=== PATIENT | male | born 1975 | race Caucasian/White ===

== ENCOUNTER 2016-06-26 18:51 | Emergency (ER) | payer OTHER ==
[2016-06-26 20:44] VITALS: BP 149/90
== END 2016-06-26 20:44 | disposition other institution (70) ==
LOC: ED 18:51
DX: Z02.89 Encounter for other administrative examinations (principal)

== ENCOUNTER 2016-07-30 04:51 | Inpatient (IN) | payer OTHER ==
[~2016-07-30] VITALS: Ht 180.3 cm; Wt 103.9 kg
[2016-07-30 05:26] LABS: BASOPHIL % 0.5 % (0-2)
[2016-07-30 05:31] LABS: RED CELL DISTRIBUTION WIDTH 15.4 % (11.5-14.5)
[2016-07-30 05:53] LABS: ALBUMIN 3.7 g/dL (3.4-5.0); ALKALINE PHOSPHATASE 125 U/L (46-116); ALT/SGPT 15 U/L (16-63); AST/SGOT 15 U/L (15-37); BILIRUBIN TOTAL 1.1 mg/dL (0.20-1.00); CARBON DIOXIDE 24.9 mmol/L (21-32); CHLORIDE SERUM 100 mmol/L (98-107); CREATININE SERUM 1.2 mg/dL (0.7-1.3); GFR1 > 60 mL/min; GLUCOSE SERUM 139 mg/dL (74-106); LIPASE 82 IU/L (73-393); SODIUM SERUM 140 mmol/L (136-145)
[2016-07-30 05:55] LABS: AMYLASE 18 U/L (25-115); TOTAL PROTEIN, SERUM 9.4 g/dL (6.4-8.2)
[2016-07-30 05:56] LABS: POTASSIUM SERUM 2.7 mmol/L (3.5-5.1)
[2016-07-30 05:58] LABS: CK-MB 0.6 ng/mL (0-3.6)
[2016-07-30 06:09] LABS: PLATELET COUNT 501 x10^3mcL (130-400)
[2016-07-30 08:05] LABS: MAGNESIUM 1.7 mg/dL (1.8-2.4); PHOSPHOROUS 1.9 mg/dL (2.5-4.9)
[2016-07-30 08:16] LABS: FREE T4 1.37 ng/dL (0.76-1.46); FREE THYROXINE INDEX 3.1 ug/dL (1.4-4.5); T4(THYROXINE) 9.4 ug/dL (4.7-13.3)
[2016-07-30 08:18] LABS: T3 TOTAL 1.11 ng/mL
[2016-07-30 10:13] LABS: microscopic required? NO
[2016-07-30 10:31] VITALS: BP 177/89
[2016-07-30 10:51] VITALS: BP 177/89
[2016-07-30 12:19] LABS: UA SPECIFIC GRAVITY 1.015 (1.005-1.035); urine erythrocyte NEGATIVE (NEGATIVE)
[2016-07-30 12:25] LABS: AMPHETAMINE QUAL UR POSITIVE (NEG <=1000)
[2016-07-30 12:30] VITALS: BP 181/107
[2016-07-30 13:42] VITALS: BP 129/68; BP 155/97
[2016-07-30 18:33] LABS: CALCIUM 8.6 mg/dL (8.5-10.1); CARBON DIOXIDE 24.2 mmol/L (21-32); CHLORIDE SERUM 103 mmol/L (98-107); CREATININE SERUM 0.9 mg/dL (0.7-1.3); GFR1 > 60 mL/min; GLUCOSE SERUM 133 mg/dL (74-106); SODIUM SERUM 140 mmol/L (136-145)
[2016-07-30 18:54] LABS: POTASSIUM SERUM 2.8 mmol/L (3.5-5.1)
[2016-07-30 21:35] VITALS: BP 164/109
[2016-07-31 05:41] VITALS: BP 160/109
[2016-07-31 07:19] LABS: CARBON DIOXIDE 26.9 mmol/L (21-32); CHLORIDE SERUM 104 mmol/L (98-107); CREATININE SERUM 0.6 mg/dL (0.7-1.3); GFR1 > 60 mL/min; GLUCOSE SERUM 100 mg/dL (74-106); MAGNESIUM 2.2 mg/dL (1.8-2.4); PHOSPHOROUS 3.3 mg/dL (2.5-4.9); POTASSIUM SERUM 3.5 mmol/L (3.5-5.1); SODIUM SERUM 140 mmol/L (136-145)
[2016-07-31 07:33] LABS: BASOPHIL % 0.2 % (0-2); PLATELET COUNT 400 x10^3mcL (130-400)
[2016-07-31 07:34] LABS: RED CELL DISTRIBUTION WIDTH 16.9 % (11.5-14.5)
[2016-07-31 10:56] VITALS: BP 159/104
[2016-07-31 11:35] VITALS: BP 149/91
[2016-07-31 18:29] VITALS: BP 167/110
[2016-07-31 21:15] VITALS: BP 166/107
[2016-08-01 06:33] LABS: BASOPHIL % 0.6 % (0-2)
[2016-08-01 06:35] VITALS: BP 170/112
[2016-08-01 06:42] LABS: PLATELET COUNT 427 x10^3mcL (130-400); RED CELL DISTRIBUTION WIDTH 16.1 % (11.5-14.5)
[2016-08-01 06:57] LABS: CALCIUM 9.5 mg/dL (8.5-10.1); CHLORIDE SERUM 100 mmol/L (98-107); CREATININE SERUM 0.8 mg/dL (0.7-1.3); GFR1 > 60 mL/min; GLUCOSE SERUM 98 mg/dL (74-106); SODIUM SERUM 138 mmol/L (136-145)
[2016-08-01 09:30] VITALS: BP 197/119
== END 2016-08-01 10:44 | disposition left against medical advice (07) | DRG 251 ==
LOC: ED 04:51 → DU 06:57 → MU 07-31 16:26
PROVIDERS: Emergency Medicine; Family Medicine; ADMIT Family Medicine
DX: R10.9 Unspecified abdominal pain (principal); N17.0 Acute kidney failure with tubular necrosis; G92 Toxic encephalopathy; T43.621A Poisoning by amphetamines, accidental (unintentional), initial encounter; K52.9 Noninfective gastroenteritis and colitis, unspecified; F15.129 Other stimulant abuse with intoxication, unspecified; I16.1 Hypertensive emergency; E87.2 Acidosis; E87.6 Hypokalemia; E78.5 Hyperlipidemia, unspecified; F12.10 Cannabis abuse, uncomplicated; F17.210 Nicotine dependence, cigarettes, uncomplicated; E66.9 Obesity, unspecified; Z68.31 Body mass index [BMI] 31.0-31.9, adult; Y92.009 Unspecified place in unspecified non-institutional (private) residence as the place of occurrence of the external cause
CPT/HCPCS: 80307; 83880; 84439; J0360; J1170; J2060; J2270; J2405; J3010; J3475; J3480; J7030; Q0092

== ENCOUNTER 2018-06-12 17:29 | Inpatient (IN) | payer OTHER ==
[~2018-06-12] VITALS: Ht 180.3 cm; Wt 103.9 kg
[2018-06-12 17:34] VITALS: Ht 180.3 cm; Wt 103.9 kg
[2018-06-12 18:37] LABS: BASOPHIL % 0.4 % (0-2); PLATELET COUNT 335 x10^3mcL (130-400)
[2018-06-12 18:50] LABS: ALBUMIN 3.4 g/dL (3.4-5.0); ALKALINE PHOSPHATASE 139 U/L (46-116); ALT/SGPT 17 U/L (16-63); AST/SGOT 20 U/L (15-37); BILIRUBIN TOTAL 0.9 mg/dL (0.20-1.00); CALCIUM 9.2 mg/dL (8.5-10.1); CARBON DIOXIDE 26.6 mmol/L (21-32); CHLORIDE SERUM 99 mmol/L (98-107); CREATININE SERUM 0.9 mg/dL (0.7-1.3); GFR1 > 60 mL/min; GLUCOSE SERUM 118 mg/dL (74-106); SODIUM SERUM 138 mmol/L (136-145)
[2018-06-12 18:51] LABS: RED CELL DISTRIBUTION WIDTH 16.2 % (11.5-14.5)
[2018-06-12 19:08] LABS: microscopic required? NO
[2018-06-12 19:09] LABS: TOTAL PROTEIN, SERUM 8.9 g/dL (6.4-8.2)
[2018-06-12 19:10] LABS: POTASSIUM SERUM 2.8 mmol/L (3.5-5.1)
[2018-06-12 19:23] LABS: UA SPECIFIC GRAVITY 1.015 (1.005-1.035); urine erythrocyte NEGATIVE (NEGATIVE)
[2018-06-12 19:47] LABS: AMPHETAMINE QUAL UR POSITIVE (See below)
[2018-06-12 21:25] LABS: CHOLESTEROL/HDL RATIO 3.6; MAGNESIUM 1.8 mg/dL (1.8-2.4); PHOSPHOROUS 1.2 mg/dL (2.5-4.9)
[2018-06-12 22:35] VITALS: BP 162/95
[2018-06-13 05:08] LABS: PLATELET COUNT 351 x10^3mcL (130-400)
[2018-06-13 05:11] LABS: RED CELL DISTRIBUTION WIDTH 16.5 % (11.5-14.5)
[2018-06-13 05:19] LABS: BAND NEUTROPHIL 1 % (0-10); CALCIUM 8.8 mg/dL (8.5-10.1); CARBON DIOXIDE 29.3 mmol/L (21-32); CHLORIDE SERUM 100 mmol/L (98-107); GFR1 > 60 mL/min; GLUCOSE SERUM 120 mg/dL (74-106); MAGNESIUM 2.3 mg/dL (1.8-2.4); MONOCYTE 7 % (0-7); PHOSPHOROUS 3.6 mg/dL (2.5-4.9); SEGMENTED NEUTROPHILS 84 % (37-75); SODIUM SERUM 138 mmol/L (136-145)
[2018-06-13 05:21] LABS: POTASSIUM SERUM 2.7 mmol/L (3.5-5.1)
[2018-06-13 05:24] LABS: rbc morphology (normal/abnorm) ABNORMAL (NORMAL)
[2018-06-13 05:25] LABS: PLATELET MORPHOLOGY PLATELETS NORMAL; ovalocyte/elliptocyte 1+
[2018-06-13 06:20] VITALS: BP 160/104
[2018-06-13 08:48] VITALS: BP 134/55
[2018-06-13 10:36] LABS: CALCIUM 8.6 mg/dL (8.5-10.1); CARBON DIOXIDE 29.6 mmol/L (21-32); CHLORIDE SERUM 99 mmol/L (98-107); CREATININE SERUM 0.8 mg/dL (0.7-1.3); GFR1 > 60 mL/min; GLUCOSE SERUM 117 mg/dL (74-106); SODIUM SERUM 136 mmol/L (136-145)
[2018-06-13 10:47] LABS: POTASSIUM SERUM 2.6 mmol/L (3.5-5.1)
[2018-06-13 13:02] VITALS: BP 156/76
[2018-06-13 15:35] LABS: CALCIUM 8.5 mg/dL (8.5-10.1); CHLORIDE SERUM 101 mmol/L (98-107); CREATININE SERUM 0.7 mg/dL (0.7-1.3); GFR1 > 60 mL/min; GLUCOSE SERUM 117 mg/dL (74-106); SODIUM SERUM 138 mmol/L (136-145)
[2018-06-13 15:37] LABS: POTASSIUM SERUM 2.9 mmol/L (3.5-5.1)
[2018-06-13 17:29] VITALS: BP 148/97
[2018-06-13 22:01] VITALS: BP 175/107
[2018-06-14 00:10] VITALS: BP 166/96
[2018-06-14 05:45] VITALS: BP 174/104
[2018-06-14 09:31] VITALS: BP 171/110
[2018-06-14 09:43] LABS: BASOPHIL % 0.4 % (0-2); PLATELET COUNT 385 x10^3mcL (130-400)
[2018-06-14 09:47] LABS: RED CELL DISTRIBUTION WIDTH 15.7 % (11.5-14.5)
[2018-06-14 09:54] LABS: CALCIUM 8.9 mg/dL (8.5-10.1); CARBON DIOXIDE 25.9 mmol/L (21-32); CHLORIDE SERUM 99 mmol/L (98-107); CREATININE SERUM 0.7 mg/dL (0.7-1.3); GFR1 > 60 mL/min; GLUCOSE SERUM 107 mg/dL (74-106); SODIUM SERUM 135 mmol/L (136-145)
[2018-06-14 09:56] LABS: POTASSIUM SERUM 2.8 mmol/L (3.5-5.1)
[2018-06-14 15:30] VITALS: BP 142/98
[2018-06-14 19:25] LABS: CALCIUM 8.7 mg/dL (8.5-10.1); CARBON DIOXIDE 26.3 mmol/L (21-32); CHLORIDE SERUM 102 mmol/L (98-107); CREATININE SERUM 0.8 mg/dL (0.7-1.3); GFR1 > 60 mL/min; GLUCOSE SERUM 116 mg/dL (74-106); POTASSIUM SERUM 3.2 mmol/L (3.5-5.1); SODIUM SERUM 135 mmol/L (136-145)
[2018-06-14 20:23] VITALS: BP 155/93
[2018-06-15 05:38] VITALS: BP 163/111
[2018-06-15 06:20] LABS: CALCIUM 8.8 mg/dL (8.5-10.1); CARBON DIOXIDE 26.5 mmol/L (21-32); CHLORIDE SERUM 101 mmol/L (98-107); CREATININE SERUM 0.8 mg/dL (0.7-1.3); GFR1 > 60 mL/min; GLUCOSE SERUM 103 mg/dL (74-106); POTASSIUM SERUM 3.2 mmol/L (3.5-5.1); SODIUM SERUM 136 mmol/L (136-145)
[2018-06-15 06:49] LABS: BASOPHIL % 0.4 % (0-2); PLATELET COUNT 361 x10^3mcL (130-400)
[2018-06-15 06:56] LABS: RED CELL DISTRIBUTION WIDTH 15.6 % (11.5-14.5)
[2018-06-15 09:00] VITALS: BP 140/93
[2018-06-15 13:13] VITALS: BP 161/103
[2018-06-15 17:13] VITALS: BP 161/109
[2018-06-15 21:39] VITALS: BP 152/93
[2018-06-16] VITALS (7 sets, daily range): BP systolic 133–160; BP diastolic 78–117
[2018-06-16 06:12] LABS: BASOPHIL % 0.4 % (0-2); PLATELET COUNT 320 x10^3mcL (130-400)
[2018-06-16 06:25] LABS: CALCIUM 8.4 mg/dL (8.5-10.1); CARBON DIOXIDE 23.9 mmol/L (21-32); CHLORIDE SERUM 103 mmol/L (98-107); CREATININE SERUM 0.8 mg/dL (0.7-1.3); GFR1 > 60 mL/min; GLUCOSE SERUM 101 mg/dL (74-106); POTASSIUM SERUM 3.1 mmol/L (3.5-5.1); SODIUM SERUM 138 mmol/L (136-145)
[2018-06-16 06:35] LABS: RED CELL DISTRIBUTION WIDTH 17.4 % (11.5-14.5)
== END 2018-06-16 17:50 | disposition home or self-care (01) | DRG 812 ==
LOC: ED 17:29 → DU 20:33
PROVIDERS: Emergency Medicine; ADMIT General Practice
PROC: 02HV33Z Insertion of Infusion Device into Superior Vena Cava, Percutaneous Approach (ICD-10-PCS; principal; 2018-06-12)
PROC: B548ZZA Ultrasonography of Superior Vena Cava, Guidance (ICD-10-PCS; 2018-06-12)
DX: T43.621A Poisoning by amphetamines, accidental (unintentional), initial encounter (principal); G92 Toxic encephalopathy; K56.609 Unspecified intestinal obstruction, unspecified as to partial versus complete obstruction; E83.39 Other disorders of phosphorus metabolism; I45.81 Long QT syndrome; K21.9 Gastro-esophageal reflux disease without esophagitis; E87.6 Hypokalemia; I16.0 Hypertensive urgency; F15.10 Other stimulant abuse, uncomplicated; F12.10 Cannabis abuse, uncomplicated; F17.210 Nicotine dependence, cigarettes, uncomplicated; I10 Essential (primary) hypertension; E66.9 Obesity, unspecified; F11.10 Opioid abuse, uncomplicated; K29.00 Acute gastritis without bleeding; Z95.0 Presence of cardiac pacemaker; Z91.14 Patient's other noncompliance with medication regimen; Y92.018 Other place in single-family (private) house as the place of occurrence of the external cause; I25.2 Old myocardial infarction; Z83.3 Family history of diabetes mellitus; Z82.49 Family history of ischemic heart disease and other diseases of the circulatory system; Z68.29 Body mass index [BMI] 29.0-29.9, adult
CPT/HCPCS: 83880; G0480; J0360; J1200; J1650; J1885; J1956; J2060; J2270; J2405; J3475; J3480; J3490; J7050; Q0092